=== PATIENT | female | born 2000 | race Asian ===

== ENCOUNTER 2023-12-22 23:48 | Inpatient (IN) | payer OTHER, SELFPAY ==
[~2023-12-22] VITALS: Ht 157.5 cm; Wt 83.0 kg
[2023-12-23 00:41] LABS: HEMATOCRIT 37.6 % (36.0-47.0); HEMOGLOBIN 12.9 g/dl (12.0-15.5); MEAN CORPUSCULAR HEMOGLOBIN 31.5 pg (27.0-33.0); MEAN CORPUSCULAR HGB CONC 34.3 g/dl (32.0-36.5); MEAN CORPUSCULAR VOLUME 91.7 fl (80.0-96.0); PLATELET COUNT, AUTOMATED 333 10^3/uL (150-450)
[2023-12-23 00:53] LABS: AMPHETAMINES LEVEL URINE NEGATIVE (NEGATIVE); BARBITURATES URINE NEGATIVE (NEGATIVE); BENZODIAZEPINES URINE NEGATIVE (NEGATIVE); CANNABINOIDS URINE NEGATIVE (NEGATIVE); COCAINE METABOLITE URINE NEGATIVE (NEGATIVE); METHADONE URINE NEGATIVE (NEGATIVE); OPIATES URINE NEGATIVE (NEGATIVE); PHENCYCLIDINE URINE NEGATIVE (NEGATIVE)
[2023-12-23 00:56] LABS: ETHYL ALCOHOL (ETHANOL) 0.241 % (0.000-0.010)
[2023-12-23 00:58] LABS: ALKALINE PHOSPHATASE 59 U/L (46-116); ALT/SGPT 34 U/L (7.0-40); AST/SGOT 15 U/L (<34); BILIRUBIN,DIRECT < 0.1 MG/DL (<0.4); BILIRUBIN,TOTAL 0.3 MG/DL (0.3-1.2); BLOOD UREA NITROGEN 8 MG/DL (9-23); CALCIUM LEVEL 9.5 MG/DL (8.5-10.1); CARBON DIOXIDE LEVEL 26 MMOL/L (20-31); CHLORIDE LEVEL 111 MMOL/L (98-107); CREATININE FOR GFR 0.75 MG/DL (0.55-1.30); GLOMERULAR FILTRATION RATE > 60.0 (>60); GLUCOSE, FASTING 96 MG/DL (60-100); POTASSIUM SERUM 3.6 MMOL/L (3.5-5.1); SALICYLATE LEVEL < 3.0 MG/DL (<30); SODIUM LEVEL 145 MMOL/L (136-145); TOTAL PROTEIN 7.8 G/DL (5.7-8.2)
[2023-12-23 01:00] LABS: THYROID STIMULATING HORMONE 1.296 uIU/ML (0.55-4.78)
[2023-12-23 01:15] LABS: HCG, SERUM QUALITATIVE NEGATIVE (NEGATIVE)
[2023-12-23] MEDS ORDERED: IBUP80TA PO (02:16)
[2023-12-23] MEDS ORDERED: TRAZ-252 PO (02:16)
[2023-12-23] MEDS ORDERED: FLUO-290 PO (02:16)
[2023-12-23] MEDS ORDERED: B-2100TA PO (02:16)
[2023-12-23] MEDS ORDERED: HOME MED LIST COMPLETE! XX SCH (02:25)
[2023-12-23] MEDS ORDERED: MAALOX 30 ML SUSP *UDC PO PRN (11:50)
[2023-12-23] MEDS ORDERED: MOM 30ML SUSPENSION UDC PO PRN (11:50)
[2023-12-23] MEDS: ACETAMINOPHEN TAB 650MG DOSE (2X325MG) PO PRN (12:25)
[2023-12-23 14:30] VITALS: BP 146/83; TEMP 97.7; O2SAT 100
[2023-12-23 18:17] VITALS: BP 132/87; TEMP 97.4; O2SAT 96
[2023-12-23] MEDS: IBUPROFEN 400MG TAB PO PRN (20:37)
[2023-12-24 06:39] VITALS: BP 133/71; TEMP 97.7; O2SAT 100
[2023-12-24] MEDS: FLUoxetine 20MG CAP PO SCH (09:00)
[2023-12-24] MEDS: diphenhydrAMINE 25MG CAP PO PRN (15:49)
[2023-12-24 18:37] VITALS: BP 136/76; TEMP 97.8; O2SAT 96
[2023-12-25 06:00] VITALS: BP 116/63; TEMP 96.9; O2SAT 99
[2023-12-25 16:17] VITALS: BP 139/87; TEMP 97.4; O2SAT 100
[2023-12-25] MEDS: traZODone 50 MG TAB PO PRN (23:32)
[2023-12-26 06:16] VITALS: BP 96/55; TEMP 97.7; O2SAT 100
[2023-12-26 16:10] VITALS: BP 120/75; TEMP 97.2; O2SAT 100
[2023-12-27 06:16] VITALS: BP 109/56; TEMP 97.7; O2SAT 100
[2023-12-27] MEDS: NICOTINE 21MG/24HR 1 EA TRANSDERMAL TD SCH (11:31)
[2023-12-27 15:55] VITALS: BP 131/77; TEMP 97.6; O2SAT 100
[2023-12-28 06:20] VITALS: BP 155/94; TEMP 97.2; O2SAT 99
[2023-12-28] MEDS ORDERED: FLUO-365 PO (09:16)
== END 2023-12-28 11:15 | disposition home or self-care (01) | DRG 881 ==
LOC: EDBD 23:48 → M ED 23:48 → M ED INP 12-23 11:46 → M PSY 12-23 13:49
PROVIDERS: ADMIT Psychiatry & Neurology Psychiatry; ATTEND Psychiatry & Neurology Psychiatry
DX: F43.21 Adjustment disorder with depressed mood (principal); R45.851 Suicidal ideations; Z88.2 Allergy status to sulfonamides; Z88.6 Allergy status to analgesic agent; Z79.899 Other long term (current) drug therapy; E66.01 Morbid (severe) obesity due to excess calories

== ENCOUNTER 2024-02-11 16:10 | Emergency (ER) | payer OTHER ==
[~2024-02-11 16:10] MED LIST: B-2100TA PO; FLUO-290 PO; FLUO-365 PO; IBUP80TA PO; TRAZ-252 PO
[2024-02-11 16:24] VITALS: BP 131/80; TEMP 97.6; O2SAT 100
[2024-02-11 17:07] LABS: HEMOGLOBIN 12.5 g/dl (12.0-15.5); MEAN CORPUSCULAR HEMOGLOBIN 31.2 pg (27.0-33.0); MEAN CORPUSCULAR HGB CONC 33.8 g/dl (32.0-36.5); MEAN CORPUSCULAR VOLUME 92.3 fl (80.0-96.0); PLATELET COUNT, AUTOMATED 336 10^3/uL (150-450); RED BLOOD COUNT 4.01 10^6/uL (4.00-5.40); WHITE BLOOD COUNT 10.2 10^3/uL (4.0-10.0)
[2024-02-11] MEDS ORDERED: FLUO-96 PO (17:27)
[2024-02-11] MEDS ORDERED: ROZE8TAB16 PO (17:27)
[2024-02-11] MEDS ORDERED: HOME MED LIST COMPLETE! XX SCH (17:30)
[2024-02-11 17:34] LABS: AMPHETAMINES LEVEL URINE NEGATIVE (NEGATIVE); BARBITURATES URINE NEGATIVE (NEGATIVE); CANNABINOIDS URINE NEGATIVE (NEGATIVE); COCAINE METABOLITE URINE NEGATIVE (NEGATIVE); METHADONE URINE NEGATIVE (NEGATIVE); OPIATES URINE NEGATIVE (NEGATIVE); PHENCYCLIDINE URINE NEGATIVE (NEGATIVE)
[2024-02-11 17:35] LABS: BENZODIAZEPINES URINE NEGATIVE (NEGATIVE)
[2024-02-11 17:41] LABS: ETHYL ALCOHOL (ETHANOL) 0.005 % (0.000-0.010)
[2024-02-11 17:43] LABS: ALBUMIN 3.8 G/DL (3.2-5.2); ALKALINE PHOSPHATASE 61 U/L (35-104); ALT/SGPT 45 U/L (7.0-40); AST/SGOT 18 U/L (<34); BILIRUBIN,DIRECT < 0.1 MG/DL (<0.4); BILIRUBIN,TOTAL 0.3 MG/DL (0.3-1.2); BLOOD UREA NITROGEN 10 MG/DL (9-23); CALCIUM LEVEL 10.1 MG/DL (8.5-10.1); CARBON DIOXIDE LEVEL 21 MMOL/L (20-31); CHLORIDE LEVEL 108 MMOL/L (98-107); CREATININE FOR GFR 0.59 MG/DL (0.55-1.30); GLOMERULAR FILTRATION RATE > 60.0 (>60); GLUCOSE, FASTING 83 MG/DL (60-100); POTASSIUM SERUM 3.9 MMOL/L (3.5-5.1); SALICYLATE LEVEL < 3.0 MG/DL (<30); SODIUM LEVEL 137 MMOL/L (136-145); TOTAL PROTEIN 7.8 G/DL (5.7-8.2)
[2024-02-11 17:46] LABS: THYROID STIMULATING HORMONE 1.133 uIU/ML (0.55-4.78)
[2024-02-11 18:02] LABS: HCG, SERUM QUALITATIVE NEGATIVE (NEGATIVE)
== END 2024-02-11 18:40 | disposition home or self-care (01) ==
LOC: M ED 16:10 → EDBD 16:10 → M ED 18:40
DX: F32.A Depression, unspecified (principal); F41.9 Anxiety disorder, unspecified; Z79.899 Other long term (current) drug therapy; Z88.2 Allergy status to sulfonamides; Z88.6 Allergy status to analgesic agent

== ENCOUNTER → 2024-04-20 | Outpatient (CLI) | payer OTHER ==
[~2024-04-20] MED LIST changes: +FLUO-96 PO; +ROZE8TAB16 PO
== END ==
LOC: M RAD 16:21
PROVIDERS: ATTEND Obstetrics & Gynecology
DX: O99.351 Diseases of the nervous system complicating pregnancy, first trimester (principal); G44.52 New daily persistent headache (NDPH); Z3A.10 10 weeks gestation of pregnancy

== ENCOUNTER 2024-10-20 22:41 | Outpatient (CLI) | payer OTHER ==
[~2024-10-20] VITALS: Ht 154.9 cm; Wt 88.4 kg
[2024-10-20 22:52] VITALS: BP 114/61; O2SAT 100
[2024-10-20] MEDS ORDERED: FOLITAB10 PO (23:02)
[2024-10-20] MEDS ORDERED: ACET-897 PO (23:02)
[2024-10-20] MEDS ORDERED: HOME MED LIST COMPLETE! XX SCH (23:05)
[2024-10-20] MEDS ORDERED: SERT25TA85 PO (23:17)
[2024-10-21] MEDS ORDERED: GNP28TAB2 PO (10:41)
== END 2024-10-20 23:11 | disposition other institution (70) ==
LOC: M LDO 22:41
PROVIDERS: ATTEND Obstetrics & Gynecology
DX: O26.893 Other specified pregnancy related conditions, third trimester (principal); O99.343 Other mental disorders complicating pregnancy, third trimester; F41.9 Anxiety disorder, unspecified; Z86.32 Personal history of gestational diabetes; Z88.6 Allergy status to analgesic agent; Z88.8 Allergy status to other drugs, medicaments and biological substances; Z3A.37 37 weeks gestation of pregnancy
CPT/HCPCS: 59025; G0463

== ENCOUNTER → 2024-11-25 | Outpatient (REF) | payer OTHER ==
[~2024-11-25] MED LIST changes: +ACET-897 PO; +COLA100C5 PO; +FOLITAB10 PO; +GNP28TAB2 PO; +NIFE-3; +PERCOCET PO; +PRENTAB9 PO; +SERT25TA85 PO
== END ==
LOC: M SFHCWAGY 16:42
PROVIDERS: ATTEND Obstetrics & Gynecology
DX: R30.0 Dysuria (principal)

== ENCOUNTER → 2024-11-25 | Outpatient (REF) | payer OTHER | LOC: M PLALAB 15:34 | PROVIDERS: ATTEND Obstetrics & Gynecology | DX: Z53.9 Procedure and treatment not carried out, unspecified reason (principal); R30.0 Dysuria ==

== ENCOUNTER → 2025-03-16 | Outpatient (CLI) | payer OTHER | LOC: M RAD 13:30 | PROVIDERS: ATTEND Pain Medicine Interventional Pain Medicine | DX: M54.16 Radiculopathy, lumbar region (principal) ==